=== PATIENT | female | born 1985 ===

== ENCOUNTER 2018-07-13 19:37 | Emergency (ER) | payer SELFPAY ==
[2018-07-13 19:55] VITALS: BMI 26.4
[2018-07-13 19:58] VITALS: BP 103/68; PULSE 79; RESP 18; TEMP 98.4; O2SAT 95
--- NOTE | 2018-07-13 20:36 | ED PDOC ---
Arrival/HPI - General Historian: Patient <Sohan Lombardi - Last Filed: 07/13/18 20:33> <Monty Carrasquillo - Last Filed: 07/13/18 23:24> - General Chief Complaint: ENT Problem Time Seen by Provider: 07/13/18 20:32 - History of Present Illness Narrative History of Present Illness (Text): 07/13/18 20:33 32yo female with no pmhx who present with complaint of nasal bone pain x 4days. She reports history of allergic rhinitis. States she uses Flonase. She denies fever, chills, facial pressure, headache, visual changes, any other complaint. ( Maria CSohan A) Past Medical History - Provider Review Nursing Documentation Reviewed: Yes - Infectious Disease Hx of Infectious Diseases: None - Psychiatric Hx Substance Use: No <Sohan Lombardi - Last Filed: 07/13/18 20:33> Family/Social History - Physician Review Nursing Documentation Reviewed: Yes Family/Social History: Unknown Family HX Smoking Status: Never Smoked Hx Alcohol Use: No Hx Substance Use: No <Maria CSohan A - Last Filed: 07/13/18 20:33> Allergies/Home Meds <Sohan Lombardi A - Last Filed: 07/13/18 20:33> <Monty Carrasquillo - Last Filed: 07/13/18 23:24> Allergies/Adverse Reactions: Allergies No Known Allergies Allergy (Verified 07/13/18 19:55) Review of Systems - Physician Review All systems were reviewed & negative as marked: Yes - Review of Systems Constitutional: Normal Eyes: Normal ENT: Other (Nasal bone pain) Respiratory: Normal Cardiovascular: Normal Gastrointestinal: Normal Genitourinary Female: Normal Musculoskeletal: Normal Skin: Normal Neurological: Normal Endocrine: Normal Hemo/Lymphatic: Normal Psychiatric: Normal <Sohan Lombardi A - Last Filed: 07/13/18 20:33> Physical Exam Vital Signs Reviewed: Yes Temperature: Afebrile Blood Pressure: Normal Pulse: Regular Respiratory Rate: Normal Appearance: Positive for: Well-Appearing, Non-Toxic, Comfortable Pain Distress: None Mental Status: Positive for: Alert and Oriented X 3 - Systems Exam Head: Present: Atraumatic, Normocephalic Pupils: Present: PERRL Extroacular Muscles: Present: EOMI Conjunctiva: Present: Normal Mouth: Present: Moist Mucous Membranes Nose (External): Present: Other (Mild tenderness over the nasal bridge). No: Atraumatic, Abrasion, Contusion Nose (Internal): Present: Boggy (b/l , Right great than left nares). No: Engorged, Edematous, Septal Deviation Neck: Present: Normal Range of Motion Respiratory/Chest: Present: Clear to Auscultation, Good Air Exchange. No: Respiratory Distress, Accessory Muscle Use Cardiovascular: Present: Regular Rate and Rhythm, Normal S1, S2. No: Murmurs Abdomen: No: Tenderness, Distention, Peritoneal Signs Back: Present: Normal Inspection Upper Extremity: Present: Normal Inspection. No: Cyanosis, Edema Lower Extremity: Present: Normal Inspection. No: Edema Neurological: Present: GCS=15, CN II-XII Intact, Speech Normal Skin: Present: Warm, Dry, Normal Color. No: Rashes Psychiatric: Present: Alert, Oriented x 3, Normal Insight, Normal Concentration <Diru,Happiness A - Last Filed: 07/13/18 20:33> Vital Signs Temp Pulse Resp BP Pulse Ox 07/13/18 19:58 98.4 F 79 18 103/68 95 - Medication Orders Current Medication Orders: Discontinued Medications Ibuprofen (Motrin Tab) 600 mg PO STAT STA Stop: 07/13/18 20:34 Last Admin: 07/13/18 21:05 Dose: 600 mg MAR Pain/Vitals Document 07/13/18 21:05 DANICA (Rec: 07/13/18 21:06 DANICA [id number]) Pain Reassessment Is This A Pain ReAssessment? Yes Presence of Pain Presence of Pain Yes Pain Scale Used Pain Scale Used Numeric Location Pain Location Body Site nose - PA / BEAD STRINGER / Resident Statement MD/DO has reviewed & agrees with the documentation as recorded. <Monty Carrasquillo - Last Filed: 07/13/18 23:24> Disposition/Present on Arrival - Present on Arrival Any Indicators Present on Arrival: No History of DVT/PE: No History of Uncontrolled Diabetes: No Urinary Catheter: No History of Decub. Ulcer: No History Surgical Site Infection Following: None - Disposition Have Diagnosis and Disposition been Completed?: Yes Disposition Time: 20:40 Patient Plan: Discharge <Diru,Happiness A - Last Filed: 07/13/18 20:33> <Monty Carrasquillo - Last Filed: 07/13/18 23:24> - Disposition Diagnosis: Nose pain Disposition: HOME/ ROUTINE Condition: STABLE Discharge Instructions (ExitCare): Muscle and Bone Pain (DC) Additional Instructions: Follow up with your Doctor Return to ED for any new or worsening symptoms Prescriptions: Ibuprofen [Ibu] 400 mg PO Q6 #15 tablet Referrals: Radha Triana MD [Medical Doctor] - Follow up with primary Forms: Ke[employer] (Luxembourger)
== END 2018-07-13 21:15 | disposition home or self-care (01) ==
LOC: ED 19:37
DX: J34.89 Other specified disorders of nose and nasal sinuses (principal)